=== PATIENT | female | born 1960 | race African-American/Black ===

== ENCOUNTER 2016-07-15 19:09 | Observation (INO) | payer MEDICARE, OTHER ==
--- NOTE | ~2016-07-15 | CR21 ---
[facility] A Service of [facility] & [facility] RADIOLOGY TEXT RESULTS PATIENT: PAOLA GOINS LOCATION: [facility] 572-01 : 56 UNIT #: [id number] AGE: [address]: Los Gonsalez MD SEX: F ORDER DR: [id number] [facility] [address]. [place], [place] [address] [id number] MR#: [id number] Acc #: [id number] NAME: PAOLA GOINS : 1960 SEX: F STUDY DATE/TIME: 07/15/2016 19:27 UNIT: GUILLERMO ROOM: STUDY DESCRIPTION: CR Ankle Min 3 Views Rt Attending Physician: Mis Gonzales M.D. Ordering Physician: Mis Gonzales M.D. Primary Care Physician: Montse Castro M.D. MEDICAL IMAGING REPORT This report is preliminary unless electronic signature is present EXAM Right ankle, 3 views. HISTORY Right foot and ankle pain. Twisted foot and ankle today. FINDINGS 3 views of the right ankle demonstrates mild soft tissue swelling about the ankle. No fracture or dislocation. Ankle mortise appears intact. The talus and subtalar joint appear normal. IMPRESSION Mild ankle soft tissue swelling. No fracture. Dictated by... Mahogany Robins M.D. THIS IS AN ELECTRONICALLY VERIFIED REPORT Mahogany Robins M.D. at 07/18/2016 6:07 AM Maria Esther TD: 07/15/2016 23:54 JOB #: [id number] MEDICAL IMAGING REPORT Page 1 of 1 COPY
--- NOTE | ~2016-07-15 | CR127 ---
[facility]. [facility] A Service of [facility] & [facility] RADIOLOGY TEXT RESULTS PATIENT: PAOLA GOINS LOCATION: [facility] 572-01 : 56 UNIT #: [id number] AGE: [address]: Los Gonsalez MD SEX: F ORDER DR: [id number] [facility] [address] [facility]. [place], [place] [address] [id number] E MR#: [id number] Acc #: [id number] NAME: PAOLA GOINS : 1960 SEX: F STUDY DATE/TIME: 07/15/2016 19:28 UNIT: [facility] ROOM: STUDY DESCRIPTION: CR Foot Complete Min 3 View Rt Attending Physician: Mis Gonzales M.D. Ordering Physician: Mis Gonzales M.D. Primary Care Physician: Montse Castro M.D. MEDICAL IMAGING REPORT This report is preliminary unless electronic signature is present EXAM Right foot series HISTORY Pain in right foot, ankle. Short of air, cough, twisted foot and ankle today. FINDINGS AP lateral oblique radiographs of the right foot show a 3 mm chip or avulsion fracture from the distal lateral calcaneus along its anterolateral articular surface. It is not significantly distracted or displaced. It is seen only on the oblique view. Correlate with mechanism of injury and location of patient's pain. No other fractures are seen. The joint spaces are intact. There appears to be some mild soft tissue swelling along the lateral aspect of the ankle or hind foot. Correlate with separately dictated ankle series. No joint effusion suggested. Dictated by... Marcello Medeiros M.D. THIS IS AN ELECTRONICALLY VERIFIED REPORT Marcello Medeiros M.D. at 07/19/2016 10:59 PM HANDY/bruce TD: 07/15/2016 23:52 JOB #: [id number] MEDICAL IMAGING REPORT Page 1 of 1 COPY
--- NOTE | ~2016-07-15 | HP ---
Unit #: [id number] #: [id number] Patient: PAOLA GOINS [id number] [address] [place], [place] [address] [id number] I MR#: [id number] NAME: PAOLA GOINS ROOM: 572 Age: 56 Sex: F Admission Date: 07/16/2016 : 1960 Attending Physician: Los Gonsalez M.D. Primary Care Physician: Montse Castro M.D. HISTORY AND PHYSICAL CHIEF COMPLAINT Fall with right ankle pain, and wheezing. HISTORY OF PRESENT ILLNESS This is a 56-year-old female, with past medical history of hypertension, chronic back pain, asthma, anxiety, dyslipidemia, history of alcohol and cocaine abuse in the past. She had an argument which lead to, and after that she has a fall and she came to the ER with right ankle pain. On workup, she was found to have right calcaneal fracture, nondisplaced, right ankle sprain, eventually in the ER she developed wheezing and eventually being admitted for asthma exacerbation. She is complaining of severe right ankle pain and right foot pain. She had been having some dry cough but denies chest pain or other complaints. PAST MEDICAL HISTORY 1. History of asthma. 2. Chronic lower back pain. 3. Hypertension. 4. Dyslipidemia. 5. Anxiety. PAST SURGICAL HISTORY 1. History of back surgery x5. 2. History of cervical fusion. 3. History of leg pain. SOCIAL HISTORY She has history of cocaine abuse, and alcohol abuse in the past but she said she drinks now once in a while one beer and she says she used to drink and smoke also quit ten years ago. HOME MEDICATIONS Is the followin. Hydrocodone 10/325 two tablets q.4h p.r.n. 2. Breo-Ellipta 100/25 mcg one inhaler daily 3. Valium 5 mg daily 4. Diltiazem 180 mg daily 5. Simvastatin 40 mg daily REVIEW OF SYSTEMS All the review of systems negative except as in history of presenting illness. Unit #: [id number] #: [id number] Patient: PAOLA GOINS PHYSICAL EXAMINATION GENERAL: Middle-aged female lying in the bed comfortably, currently not in any distress. She is alert, awake, and oriented x3, comfortable, not in any distress. VITAL SIGNS: Her current vitals are the following, temperature 98.7, heart rate 112, respiratory rate 20, and blood pressure 119/95. Oxygen 97% on room air. HEENT EXAMINATION: Pupils equal reactive to light and accommodation. Head: Normocephalic and atraumatic. NECK: Supple. No jugular venous distention. HEART: S1 and S2, regular rate and rhythm. LUNGS: Bilateral expiratory wheeze positive. ABDOMEN: Soft, nontender, and nondistended. Bowel sounds are positive. EXTREMITIES: Right ankle positive in the cast and the (1) . NEUROLOGIC: Unable to do neuro exam at this time secondary to the patient's cooperation. DIAGNOSTIC STUDIES LABORATORY: Laboratory workup is the following, urine toxicology positive for benzodiazepines. White blood count 6, hemoglobin 13, hematocrit 39, platelets 234. Chemistries, sodium 33, potassium 3.4, chloride 100, glucose 95, BUN 18, creatinine 0.8. LFT within normal limits. Troponin 0.05. IMAGING: Chest x-ray negative. X-ray of the right foot shows 3 mm chip or avulsion fracture of the calcaneus. X-ray of right ankle shows mild soft tissue swelling. ASSESSMENT/PLAN 1. History of past fall with avulsion fracture 3 mm chip of distal non-displaced right calcaneal fracture. 2. Right ankle sprain. 3. Acute exacerbation of asthma, place on IV steroids, Duo nebulizer. 4. Chronic lower back pain. 5. Hypertension. 6. Dyslipidemia. 7. History of anxiety. 8. DVT prophylaxis, will place the patient on Lovenox. Dictated by Aletha Devine TD: 07/16/2016 09:13 JOB #: [id number] Unit #: [id number] #: [id number] Patient: PAOLA GOINS HISTORY AND PHYSICAL Page 1 of 1 X X HISTORY AND PHYSICAL
--- NOTE | ~2016-07-15 | CR72 ---
[facility] A Service of [facility] & [facility] RADIOLOGY TEXT RESULTS PATIENT: PAOLA GOINS LOCATION: [facility] 572-01 : 56 UNIT #: [id number] AGE: [address]: Los Gonsalez MD SEX: F ORDER DR: [id number] [facility] [address] [facility]. [place], [place] [address] [id number] E MR#: [id number] Acc #: [id number] NAME: PAOLA GOINS : 1960 SEX: F STUDY DATE/TIME: 07/15/2016 19:30 UNIT: GUILLERMO ROOM: STUDY DESCRIPTION: CR Chest Single View Portable Attending Physician: Mis Gonzales M.D. Ordering Physician: Mis Gonzales M.D. Primary Care Physician: Montse Castro M.D. MEDICAL IMAGING REPORT This report is preliminary unless electronic signature is present EXAM Portable chest x-ray HISTORY Short of air, cough. This a.m. FINDINGS AP radiograph of the chest is presented. No comparisons. Prior cervical spine orthopedic fixation. The visualized hardware appears grossly intact. Multilevel degenerative changes throughout the visualized thoracic spine without acute appearing bony abnormality. Heart normal in size. Mediastinal contours within normal limits. The lungs are well inflated without evidence of acute infectious or inflammatory disease. No pneumothorax or suspicious nodule. Slight blunting left lateral costophrenic sulcus could be projectional artifact or reflect trace pleural effusion. Dictated by... Marcello Medeiros M.D. THIS IS AN ELECTRONICALLY VERIFIED REPORT Marcello Medeiros M.D. at 07/19/2016 10:59 PM HANDY/nelly TD: 07/15/2016 23:52 JOB #: [id number] MEDICAL IMAGING REPORT Page 1 of 1 COPY
--- NOTE | ~2016-07-15 | DS ---
Unit #: [id number] #: [id number] Patient: PAOLA GOINS [id number] [address] [place], [place] [address] [id number] I MR#: [id number] NAME: PAOLA GOINS ROOM: 572 Age: 56 Sex: F Admission Date: 07/16/2016 : 1960 Discharge Date: 07/18/2016 Attending Physician: Los Gonsalez M.D. Primary Care Physician: Montse Castro M.D. DISCHARGE SUMMARY ADMITTING DIAGNOSIS 1. Acute hypoxic respiratory failure secondary to chronic obstructive pulmonary disease exacerbation. 2. Fall with right ankle pain and right calcaneal evulsion. 3. Chronic back pain. 4. Asthma. 5. Anxiety. 6. Hyperlipidemia. 7. History of alcohol and cocaine abuse in the past. HISTORY OF PRESENT ILLNESS The patient is a 56-year-old lady with multiple medical problems. Presented to the emergency room with a fall and right ankle pain. She was noted to have a right calcaneal fracture, nondisplaced, in the emergency room. She was also complaining of cough and shortness of breath. HOSPITAL COURSE She was started on steroids, breathing treatments. Slowly her breathing improved. Orthopedic surgery, Dr. James, evaluated the patient for right foot pain. He recommended to give fracture boot, crutches, physical therapy for training with crutches and follow with him in the office in 2 weeks. She was placed in a splint. She is doing clinically better. Her breathing is better. She wants to go home. I counselled her to follow with her primary care and with orthopedics as an outpatient. She does not smoke. Explained to her she needs to avoid passive smoking. PHYSICAL EXAMINATION ON THE DAY OF DISCHARGE VITAL SIGNS: Temperature 98.1, pulse rate 62, respirations 18, blood pressure 117/72. GENERAL: The patient is alert and oriented x3, lying in bed, no acute distress. HEENT: Normocephalic, atraumatic. No icterus. PERRLA. Extraocular muscles intact. NECK: Supple. No JVD. HEART: S1, S2. Regular rate and rhythm. CHEST: Bilateral equal air entry. Clear to auscultation. ABDOMEN: Soft, nontender. EXTREMITIES: Right leg in a splint. DISCHARGE MEDICATIONS. 1. Medrol Dosepak. 2. Hydrocodone/Tylenol 10/325 mg 1 tab p.o. q.4-6 p.r.n. pain. I am giving a prescription for 20 pain pills. I reviewed her KHADIJAH. Unit #: [id number] #: [id number] Patient: PAOLA GOINS 3. Valium 5 mg p.r.n. for anxiety. I am not giving any prescription for that. 4. Breo Ellipta 100/25 mcg inhalation 1 puff daily. 5. Cardizem 180 mg daily. 6. Robitussin 10 mL q.6 p.r.n. cough. 7. Simvastatin 40 mg daily. 8. Multivitamin 1 capsule p.o. daily. 9. Zanaflex 10 mg p.o. t.i.d. FOLLOWUP She is instructed to follow with her primary care and with ortho in 1-2 weeks. DISCHARGE INSTRUCTIONS All the discharge instructions explained in detail to the patient. NOTE: Total time spent in her care - 35 minutes. Dictated by... Aletha Vail TD: 07/18/2016 15:56 JOB #: [id number] DISCHARGE SUMMARY Page 1 of 1 X X DISCHARGE SUMMARY
--- NOTE | ~2016-07-15 | A ---
[facility] Nutrition Therapy DATE: 07/16/16 Patient: PAOLA GOINS Physician: MORCAR Address: [address] [place] [address] Room/Bed: [address] [place] [address], Zip: [place] [address] Admit Date: 07/16/16 Date of : 56 Height: 5 5 Weight: 172 78.2 NUTRITIONAL ASSESSMENT: REASON: CONSULT "PROTEIN NEEDS" PATIENT ADMITTED FOR ASTHMA EXACERBATION PMH: HTN, CHRONIC BACK PAIN, ASTHMA, ANXIETY, HX ETOH AND COCAINE ABUSE Anthropometrics: HT: 5'5", WT: 172#, BMI: 28.6 Labs: 07/15/16: NA: 133, K: 3.4 Meds: NACL I/O & Bowel function: 815/-- Skin Integrity: INTACT Estimated Nutrition Needs: PATIENT MEETING CURRENT NEEDS Assessment: PATIENT IS A 56 Y/O FEMALE ADMITTED FOR ASTHMA EXACERBATION. PATIENT REQUESTED TO SPEAK WITH DIETITIAN TO DISCUSS PROTEIN NEEDS. PATIENT HAD A LAP BAND SURGERY 10 YEARS AGO AND AUGUST OF 2015 SHE HAD HER LAP BAND REMOVED AND RECEIVED A GASTRIC BYPASS. PATIENT STATED SHE DRINKS A PROTEIN DRINK DAILY AT HOME (BENIFIBER OR WHEY PROTEIN) AND CONSUMES OVER 60GM PROTEIN DAILY. PATIENT HAS HAD NO RECENT WEIGHT CHANGES AND HAD NO C/O N/V/D/C. THERE AR MANNY SKIN OR GI ISSUES NOTED ATT. Dx: NO NUTRITION DX Intervention: REGULAR DIET, MEDS/FLUIDS PER MD, RD ASSESSMENT Monitoring, Evaluation and Goals: 1. ADEQUATE PO INTAKES >50% OF MEALS 2. PREVENT, CORRECT MICRO/MACRO NUTRIENT DEFICIENCIES MONITOR: WEIGHTS, LABS, PO/FLUID INTAKES Recommendations: 1. DISCUSSED WITH PATIENT THAT BENEFIBER AND WHEY PROTEIN ARE NOT AVAILABLE AT THIS FACILITY. PATIENT REQUESTED STRAWBERRY ENSURE BID WITH BREAKFAST AND DINNER FOR ADDED PROTEIN INTAKES [facility] Nutrition Therapy DATE: 07/16/16 Patient: PAOLA GOINS Physician: CHAPITOCAR Address: [address] [place] [address] Room/Bed: [address] [place] [address], Zip: [place] [address] Admit Date: 07/16/16 Date of : 56 Height: 5 5 Weight: [address] TO F/U PER PROTOCOL AND PRN R/T PATIENT NOT AT NUTRITIONAL RISK ATT Respectfully, CURT CONNELLY, JOSE, LD [employer] cc: client file
--- NOTE | ~2016-07-15 | EKG ---
PATIENT: PAOLA GOINS UNIT #: [id number] Ventricular Rate: 93 BPM Atrial Rate: 93 BPM P-R Interval: 202 ms QRS Duration: 94 ms Q-T Interval: 394 ms QTC Calculation(Bezet): 489 ms P York: 71 degrees Calculated R York: 8 degrees Calculated T York: 63 degrees Diagnosis Line: Normal sinus rhythm Diagnosis Line: Prolonged QT Diagnosis Line: Abnormal ECG Diagnosis Line: No previous ECGs available Diagnosis Line: Confirmed by DEONTE GREEN MD ([id number]) on Diagnosis Line: 07/16/2016 4:29:23 PM INTERPRETING MD: PETER EARL
--- NOTE | ~2016-07-15 | CO ---
Unit #: [id number] #: [id number] Patient: SHELLY NAVA [id number] [id number] [facility]. [place], [place] [address] [id number] I MR#: [id number] NAME: SHELLY NAVA ROOM: 572 Age: 56 Sex: F Admission Date: 07/16/2016 : 1960 Attending Physician: Los Gonsalez M.D. Primary Care Physician: Montse Castro M.D. Consultation Date: 07/16/2016 CONSULTATION REPORT CHIEF COMPLAINT Right foot pain and swelling after twist injury. HISTORY OF PRESENT ILLNESS Ms. Shelly Nava is a 56-year-old female with a history of hypertension, chronic back pain, asthma, anxiety, dyslipidemia, history of alcohol and cocaine abuse in the past. She had argument which led to twist and fall, and she had pain and swelling on the lateral border of her foot. She was brought to [facility] Emergency Room, where x-rays were obtained. She was diagnosed with nondisplaced avulsion of the lateral border of her calcaneus, though she developed an asthma exacerbation, was admitted for further workup and treatment. She was complaining of right ankle pain and swelling, and also complains of dry cough. PAST MEDICAL HISTORY As above. PAST SURGICAL HISTORY Includes back surgery x5, history of cervical fusion, history of leg pain. SOCIAL HISTORY Positive history of cocaine and alcohol abuse. Currently, drinks alcohol occasionally. Denies tobacco use, quit 10 years ago. HOME MEDICATIONS Include hydrocodone, Breo Ellipta, Valium, diazepam, and simvastatin. REVIEW OF SYSTEMS Positive for right ankle pain and swelling, and shortness of breath. PHYSICAL EXAMINATION GENERAL: Demonstrates a middle-aged female, lying supine in her hospital bed. The leg is in a splint. She is awake and alert x3, comfortable, in no acute distress. VITAL SIGNS: She is afebrile. Vital signs are stable. HEENT: Normocephalic and atraumatic. Extraocular movements are intact. Trachea is midline. HEART: Regular rate and rhythm. CHEST: Demonstrates a mild expiratory wheeze. ABDOMEN: Soft. EXTREMITIES: Demonstrate right lower extremity is in a splint. The splint was removed and shows skin intact. There is minimal swelling. Tender to palpation on the lateral border of the foot as well as dorsum. Unit #: [id number] #: [id number] Patient: SHELLY NAVA She has painful range of motion. Neurovascularly intact distally. DIAGNOSTIC STUDIES IMAGING STUDIES: Review of x-rays of the right foot demonstrates a small calcaneal avulsion of the lateral border. It is minimally displaced. No other fractures noted. IMPRESSION Right calcaneal avulsion after a twisting-type injury. PLAN We will allow her to be weightbearing as tolerated with a fracture boot. We will give her some crutches. Consult with Physical Therapy for gait training with crutches. She will follow up with me in the office in 2 weeks, office #[phone]. We will see her in the hospital as needed. Please call if you have any questions. Dictated by... Marcel James M.D. JENNIFER/radha TD: 07/16/2016 21:55 JOB #: [id number] CONSULTATION REPORT Page 1 of 1 X Marcel James MD X CONSULTATION REPORT
[~2016-07-15 19:09] MED LIST: ALDACTONE25 MG PO; VICODIN 5/500 T1 TAB PO
[2016-07-15 19:31] LABS: BASOPHIL# 0.1 X10e3 (0-0.3); BASOPHIL% 1.2 % (0-2.5); EOSINOPHIL# 0.2 X10e3 (0-0.7); EOSINOPHIL% 2.4 % (0.0-7.0); HEMATOCRIT 39.7 % (35.0-45.0); LYMPHOCYTE# 3.2 X10e3 (1.0-3.5); LYMPHOCYTE% 48.7 % (17.0-45.0); MEAN CELL VOLUME 91.8 FL (83-96); MEAN CORPUSCULAR HGB CONC 32.7 g/dL (30-36); MEAN PLATELET VOLUME 8.8 FL (6.5-11.5); MONOCYTE# 0.4 X10e3 (0-1.0); MONOCYTE% 5.5 % (3.0-12.0); NEUTROPHIL# 2.7 X10e3 (1.5-7.1); NEUTROPHIL% 42.2 % (40-75); PLATELET COUNT 234 X10e3 (140-420); RED BLOOD COUNT 4.32 X10e (3.90-5.30); RED CELL DISTRIBUTION WIDTH 13.6 % (11.0-15.5); WHITE BLOOD COUNT 6.5 X10e3 (4.0-10.5)
[2016-07-15 19:32] LABS: DIFF IND YES
[2016-07-15 19:39] LABS: POC - CKMB 1.1 ng/mL (0.0-7.9); POC - TROPONIN <0.05 ng/mL (<=0.05)
[2016-07-15 19:52] LABS: ALBUMIN SERUM 4.4 g/dL (3.5-5.0); BILIRUBIN, DIRECT 0.1 mg/dL (0.0-0.2); BILIRUBIN,INDIRECT 0.4 mg/dL (0.0-0.9); BILIRUBIN,TOTAL 0.5 mg/dL (0.2-2.0); BUN/CREATININE RATIO 22.5; CALCIUM SERUM 9.1 mg/dL (8.4-10.2); CREATININE SERUM 0.8 mg/dL (0.6-1.4); GLOM FILT RATE Estimated 94.3 mL/min (>60); POTASSIUM 3.4 mmol/L (3.5-5.1); PROTEIN TOTAL SERUM 7.7 g/dL (6.0-8.3)
[2016-07-15 19:58] LABS: PLATELET ESTIMATE NORMAL (NORMAL); RBC NORMAL YES
[2016-07-15 20:27] LABS: AMPHETAMINE NEG (NEG); BARBITURATES NEG (NEG); BENZODIAZEPINES POS (NEG); COCAINE NEG (NEG); MARIJUANA NEG (NEG); OPIATES NEG (NEG); TRICYCLIC ANTIDEPRESSANTS NEG (NEG); U METHADONE NEG (NEG)
[2016-07-15] MEDS ORDERED: DIAZEPAM PO (21:47)
[2016-07-15] MEDS ORDERED: HYDROCODON-ACE1 EAC5 PO (21:47)
[2016-07-15] MEDS ORDERED: BREO ELLIPTA 11 EACH INH (21:47)
[2016-07-16] MEDS ORDERED: SIMVASTATIN40 MG PO (01:19)
[2016-07-16] MEDS ORDERED: MULTI VITAMIN1 EACH (01:20)
[2016-07-16] MEDS ORDERED: DILTIAZEM 24HR180 M1 PO (01:20)
[2016-07-16] MEDS ORDERED: ZANAFLEX2 MG PO (01:22)
[2016-07-16 11:49] LABS: BUN/CREATININE RATIO 24.28; CALCIUM SERUM 9.6 mg/dL (8.4-10.2); CREATININE SERUM 0.7 mg/dL (0.6-1.4); GLOM FILT RATE Estimated 110.7 mL/min (>60)
[2016-07-17 08:20] LABS: HEMATOCRIT 36.8 % (35.0-45.0); HEMOGLOBIN 11.7 gm/dL (12.0-16.0); MEAN CORPUSCULAR HEMOGLOBIN 30.3 PG (28-34); MEAN CORPUSCULAR HGB CONC 31.9 g/dL (30-36); MEAN PLATELET VOLUME 10.2 FL (6.5-11.5); RED BLOOD COUNT 3.87 X10e (3.90-5.30); WHITE BLOOD COUNT 8.1 X10e3 (4.0-10.5)
[2016-07-17 08:22] LABS: MEAN CELL VOLUME 94.9 FL (83-96)
[2016-07-17 08:54] LABS: BUN/CREATININE RATIO 18.57; CALCIUM SERUM 9.5 mg/dL (8.4-10.2); CREATININE SERUM 0.7 mg/dL (0.6-1.4); GLOM FILT RATE Estimated 110.7 mL/min (>60); POTASSIUM 3.6 mmol/L (3.5-5.1)
[2016-07-18 06:59] LABS: HEMATOCRIT 40.6 % (35.0-45.0); HEMOGLOBIN 13.2 gm/dL (12.0-16.0); MEAN CELL VOLUME 94.1 FL (83-96); MEAN CORPUSCULAR HEMOGLOBIN 30.5 PG (28-34); MEAN CORPUSCULAR HGB CONC 32.4 g/dL (30-36); MEAN PLATELET VOLUME 9.3 FL (6.5-11.5); RED BLOOD COUNT 4.32 X10e (3.90-5.30); RED CELL DISTRIBUTION WIDTH 14.2 % (11.0-15.5); WHITE BLOOD COUNT 7.4 X10e3 (4.0-10.5)
[2016-07-18 07:39] LABS: BUN/CREATININE RATIO 28.33; CREATININE SERUM 0.6 mg/dL (0.6-1.4); GLOM FILT RATE Estimated 116.5 mL/min (>60); POTASSIUM 4.2 mmol/L (3.5-5.1)
[2016-07-18] MEDS ORDERED: WAL-TUSSIN100 MG/51 PO (15:48)
[2016-07-18] MEDS ORDERED: MEDROL DOSEPAK4 MG (15:49)
[2016-11-11] MEDS ORDERED: PATIENT'S PHARMACY (15:26)
[2016-11-11] MEDS ORDERED: IPRATR-ALBUTEROL3 ML NEB (15:27)
[2016-11-11] MEDS ORDERED: ALBUTEROL17 GM INH (15:28)
[2016-11-11] MEDS ORDERED: VALIUM10 M1 PO (15:28)
[2016-11-11] MEDS ORDERED: LORTAB 7.5-3251 EACH PO (15:29)
[2016-11-11] MEDS ORDERED: CARTIA XT180 M1 PO (15:29)
[2016-11-11] MEDS ORDERED: BANOPHEN25 MG PO (15:29)
[2016-11-11] MEDS ORDERED: BREO ELLIPTA 11 EACH INH (15:30)
[2016-11-11] MEDS ORDERED: KLONOPIN1 MG PO (15:30)
[2016-11-11] MEDS ORDERED: GABAPENTIN600 MG PO (15:31)
[2016-11-11] MEDS ORDERED: LASIX20 MG PO (15:31)
[2016-11-11] MEDS ORDERED: ZOCOR PO (15:31)
[2016-11-11] MEDS ORDERED: PANTOPRAZOLE SO40 MG PO (15:31)
[2016-11-11] MEDS ORDERED: ZANAFLEX PO (15:31)
[2016-11-11] MEDS ORDERED: MULTIVITAMINS1 EAC3 PO (15:32)
[2016-11-11] MEDS ORDERED: TRIAMCINOLONE AC1 GM TOP (15:32)
[2016-11-13] MEDS ORDERED: MUCINEX1200 MG PO (14:31)
[2016-11-13] MEDS ORDERED: DOXYCYCLINE HY100 M3 PO (14:32)
[2016-11-13] MEDS ORDERED: PREDNISONE10 M1 (14:33)
== END 2016-07-18 16:46 | disposition home or self-care (01) ==
LOC: CED 19:09 → CEDOF 23:35 → CED 07-16 00:06 → CEDOF 07-16 00:06 → C5C 07-16 00:06 → CEDOF 07-16 00:56 → C5C 07-16 00:56
PROVIDERS: Emergency Medicine; Internal Medicine
DX: J96.01 Acute respiratory failure with hypoxia (principal); J44.1 Chronic obstructive pulmonary disease with (acute) exacerbation; S92.001A Unspecified fracture of right calcaneus, initial encounter for closed fracture; W19.XXXA Unspecified fall, initial encounter; M54.5 Low back pain; G89.29 Other chronic pain; I10 Essential (primary) hypertension; E78.5 Hyperlipidemia, unspecified; F41.9 Anxiety disorder, unspecified; I51.7 Cardiomegaly; Z87.898 Personal history of other specified conditions
CPT/HCPCS: 29515; 36415; 51701; 71010; 73610; 73630; 80048; 80076; 80307; 82553; 83735; 84484; 85025; 85027; 93005; 93306; 94640; 94760; 96361; 96365; 96372; 96375; 96376; 97116; 97161; 99285; G0378; G0480; G8978-GP; G8979-GP; G8980-GP; J1650; J1885; J2060; J2920; J2930; J3475